=== PATIENT | female | born 1955 | race Caucasian/White ===

== ENCOUNTER 2018-09-15 07:04 | Emergency (ER) | payer OTHER ==
[~2018-09-15] VITALS: Ht 157.5 cm; Wt 70.5 kg
[~2018-09-15 07:04] MED LIST: CALC-159
[2018-09-15] MEDS ORDERED: AZEL6DRO OP (07:09)
[2018-09-15] MEDS ORDERED: proparacaine 0.5% ophthalmic drops 15ml EACHEYE ONE (07:10)
[2018-09-15 07:11] VITALS: BP 124/88
== END 2018-09-15 07:31 | disposition home or self-care (01) ==
LOC: ER 07:05
DX: H10.13 Acute atopic conjunctivitis, bilateral (principal); M19.90 Unspecified osteoarthritis, unspecified site; Z98.51 Tubal ligation status; Z98.890 Other specified postprocedural states; Z88.1 Allergy status to other antibiotic agents; Z79.899 Other long term (current) drug therapy; Z88.6 Allergy status to analgesic agent; Z91.018 Allergy to other foods
CPT/HCPCS: 99283

== ENCOUNTER 2019-07-08 09:06 | Emergency (ER) | payer OTHER ==
[~2019-07-08] VITALS: Ht 160 cm; Wt 69.1 kg
[~2019-07-08 09:06] MED LIST changes: +AZEL6DRO OP
[2019-07-08 09:08] VITALS: BP 125/83
== END 2019-07-08 09:30 | disposition home or self-care (01) ==
LOC: ER 09:06
DX: S40.011A Contusion of right shoulder, initial encounter (principal); M19.90 Unspecified osteoarthritis, unspecified site; Z98.890 Other specified postprocedural states; Z98.51 Tubal ligation status; Z72.89 Other problems related to lifestyle; Z88.5 Allergy status to narcotic agent; Z88.1 Allergy status to other antibiotic agents; Z88.8 Allergy status to other drugs, medicaments and biological substances; Z79.899 Other long term (current) drug therapy; Y04.8XXA Assault by other bodily force, initial encounter; Y93.89 Activity, other specified; Y92.89 Other specified places as the place of occurrence of the external cause; Y99.8 Other external cause status
CPT/HCPCS: 99283

== ENCOUNTER 2019-10-20 11:24 | Emergency (ER) | payer BC, OTHER ==
[~2019-10-20] VITALS: Ht 157.5 cm; Wt 64.5 kg
[2019-10-20 11:27] VITALS: BP 108/93
== END 2019-10-20 13:40 | disposition home or self-care (01) ==
LOC: EEVIPCON 11:25 → ER 11:25
DX: Z03.818 Encounter for observation for suspected exposure to other biological agents ruled out (principal); M19.90 Unspecified osteoarthritis, unspecified site; M81.0 Age-related osteoporosis without current pathological fracture; Z98.51 Tubal ligation status; Z98.890 Other specified postprocedural states; Z88.5 Allergy status to narcotic agent; Z88.2 Allergy status to sulfonamides; Z88.1 Allergy status to other antibiotic agents; Z88.8 Allergy status to other drugs, medicaments and biological substances; Z91.048 Other nonmedicinal substance allergy status; Z79.899 Other long term (current) drug therapy
CPT/HCPCS: 36415; 99283; U0003

== ENCOUNTER 2020-10-01 12:06 | Emergency (ER) | payer BC ==
[~2020-10-01] VITALS: Ht 157.5 cm; Wt 65.5 kg
[2020-10-01] MEDS ORDERED: iohexol 300mg/ml 100ml inj. ONE (12:18)
[2020-10-01 12:30] LABS: BASOPHILS # (AUTO) 0.1 X10'3 (0-0.2); BASOPHILS % (AUTO) 1.1 % (0-1); EOSINOPHILS # (AUTO) 0.1 X10'3 (0-0.9); EOSINOPHILS % (AUTO) 1.7 % (0-6); HEMATOCRIT 41.7 % (35.0-45.0); LYMPHOCYTES # (AUTO) 3.2 X10'3 (1.1-4.8); LYMPHOCYTES % (AUTO) 38.8 % (21-51); MEAN CORPUSCULAR HEMOGLOBIN 32.5 PG (27.0-31.0); MEAN CORPUSCULAR HGB CONC 33.7 g/dL (33.0-36.5); MEAN CORPUSCULAR VOLUME 96.5 FL (78-98); MEAN PLATELET VOLUME 8.1 FL (7.4-10.4); MONOCYTES # (AUTO) 0.7 X10'3 (0-0.9); MONOCYTES % (AUTO) 9.1 % (2-12); NEUTROPHILS % (AUTO) 49.3 % (42-75); PLATELET COUNT 360 X10'3 (140-440); RED BLOOD COUNT 4.32 X10'6 (4.20-5.60); RED CELL DISTRIBUTION WIDTH 14.1 % (11.5-14.5); WHITE BLOOD COUNT 8.2 X10'3 (4.5-11.0)
[2020-10-01 12:50] LABS: ALANINE AMINOTRANSFERASE 38 U/L (12-78); ALBUMIN 3.7 G/DL (3.4-5.0); ALKALINE PHOSPHATASE 70 IU/L (46-116); ANION GAP 6 (8-16); ASPARTATE AMINO TRANSFERASE 23 U/L (10-37); BILIRUBIN,TOTAL 0.5 MG/DL (0.1-1.0); BLOOD UREA NITROGEN 14 MG/DL (7-18); BUN/CREATININE RATIO 17.9 (6.6-38.0); CALCIUM 8.8 MG/DL (8.5-10.1); CHLORIDE 105 MMOL/L (99-107); CREATININE 0.78 MG/DL (0.40-0.90); GLUCOSE 87 MG/DL (70-104); POTASSIUM 3.8 MMOL/L (3.5-5.1); SODIUM 139 MMOL/L (135-145); TOTAL CARBON DIOXIDE 27.6 MMOL/L (24-32); TOTAL PROTEIN 7.4 G/DL (6.4-8.2); eGFR 75 ML/MIN
[2020-10-01] MEDS ORDERED: acetaminophen 325mg tablet PO ONE (12:55)
[2020-10-01 13:27] LABS: CLARITY,URINE SLIGHTLY CLOUDY (Clear); COLOR,URINE STRAW (Yellow); GLUCOSE, URINE NEGATIVE (Neg); KETONES,URINE NEGATIVE (Neg); LEUKOCYTE ESTERASE ,URINE SMALL (Neg); NITRITES, URINE NEGATIVE (Neg); OCCULT BLOOD,URINE SMALL (Neg); PH,URINE 5.5 (4.8-8.0); PROTEIN,URINE NEGATIVE (Neg); UROBILINOGEN,URINE 0.2 E.U/dL (0.2-1.0)
[2020-10-01 13:33] LABS: UA COLLECTION TYPE CLN CATCH MIDSTREAM
[2020-10-01 13:34] LABS: MUCUS STRANDS FEW /LPF (Neg); SQUAMOUS EPITHELIAL CELL,UR FEW /LPF (FEW)
[2020-10-01 13:35] LABS: BACTERIA,URINE FEW /HPF (Neg); RBC,URINE 0-2 /HPF (0-2)
[2020-10-01 14:57] VITALS: BP 117/66
== END 2020-10-01 15:00 | disposition home or self-care (01) ==
LOC: ER 12:07 → EEVIPCON 12:07 → ER 15:00
DX: K80.20 Calculus of gallbladder without cholecystitis without obstruction (principal); N28.1 Cyst of kidney, acquired; R10.31 Right lower quadrant pain; M19.90 Unspecified osteoarthritis, unspecified site; Z98.51 Tubal ligation status; Z98.890 Other specified postprocedural states; Z72.89 Other problems related to lifestyle; Z88.1 Allergy status to other antibiotic agents; Z88.2 Allergy status to sulfonamides; Z88.8 Allergy status to other drugs, medicaments and biological substances; Z79.899 Other long term (current) drug therapy
CPT/HCPCS: 36415; 74177; 76700; 80053; 81001; 85025; 87088; 99285; Q9967

== ENCOUNTER 2021-08-04 14:02 | Outpatient (CLI) | payer OTHER | END 2021-08-04 23:59 | disposition home or self-care (01) | LOC: LAB 14:02 | PROVIDERS: ATTEND Internal Medicine Infectious Disease | DX: Z20.822 Contact with and (suspected) exposure to COVID-19 (principal) | CPT/HCPCS: 87635; C9803 ==

== ENCOUNTER 2021-12-30 17:04 | Emergency (ER) | payer BC, OTHER ==
[~2021-12-30] VITALS: Ht 157.5 cm; Wt 65.9 kg
[2021-12-30 17:09] VITALS: BP 139/76
[2021-12-30 17:30] LABS: COLOR,URINE YELLOW (Yellow); GLUCOSE, URINE NEGATIVE (Neg); KETONES,URINE NEGATIVE (Neg); LEUKOCYTE ESTERASE ,URINE MODERATE (Neg); NITRITES, URINE POSITIVE (Neg); OCCULT BLOOD,URINE LARGE (Neg); PROTEIN,URINE 30 mg/dl (Neg); UROBILINOGEN,URINE 0.2 E.U/dL (0.2-1.0)
[2021-12-30 17:38] LABS: CLARITY,URINE CLOUDY (Clear)
[2021-12-30 17:39] LABS: UA COLLECTION TYPE CLN CATCH MIDSTREAM
[2021-12-30 17:41] LABS: BACTERIA,URINE 4+ /HPF (Neg); SQUAMOUS EPITHELIAL CELL,UR FEW /LPF (FEW); WBC,URINE TNTC /HPF (0-4)
[2021-12-30] MEDS ORDERED: cephalexin 250mg capsule PO ONE (18:00)
[2021-12-30] MEDS ORDERED: CEPH-585 PO (18:03)
== END 2021-12-30 18:48 | disposition home or self-care (01) ==
LOC: EEVIPCON 17:05 → ER 17:05
DX: N39.0 Urinary tract infection, site not specified (principal); Z88.1 Allergy status to other antibiotic agents; Z79.899 Other long term (current) drug therapy; Z88.5 Allergy status to narcotic agent; Z88.2 Allergy status to sulfonamides
CPT/HCPCS: 81001; 87077; 87088; 87186; 99283

== ENCOUNTER 2022-04-06 10:15 | Outpatient (CLI) | payer BC ==
[~2022-04-06 10:15] MED LIST changes: +CEPH-585 PO
[2022-04-06 11:22] LABS: BASOPHILS # (AUTO) 0.1 X10'3 (0-0.2); BASOPHILS % (AUTO) 1.3 % (0-1); EOSINOPHILS # (AUTO) 0.2 X10'3 (0-0.9); HEMATOCRIT 39.9 % (35.0-45.0); HEMOGLOBIN 13.7 g/dl (12.0-16.0); LYMPHOCYTES # (AUTO) 3.3 X10'3 (1.1-4.8); LYMPHOCYTES % (AUTO) 38.2 % (21-51); MEAN CORPUSCULAR HGB CONC 34.2 g/dL (33.0-36.5); MEAN CORPUSCULAR VOLUME 96.5 FL (78-98); MEAN PLATELET VOLUME 8.3 FL (7.4-10.4); MONOCYTES # (AUTO) 0.7 X10'3 (0-0.9); MONOCYTES % (AUTO) 8.2 % (2-12); NEUTROPHILS # (AUTO) 4.4 X10'3 (1.8-7.7); NEUTROPHILS % (AUTO) 50.3 % (42-75); PLATELET COUNT 319 X10'3 (140-440); RED BLOOD COUNT 4.14 X10'6 (4.20-5.60); RED CELL DISTRIBUTION WIDTH 14.1 % (11.5-14.5); WHITE BLOOD COUNT 8.7 X10'3 (4.5-11.0)
[2022-04-06 11:49] LABS: ALANINE AMINOTRANSFERASE 23 U/L (12-78); ALBUMIN 3.7 G/DL (3.4-5.0); ALKALINE PHOSPHATASE 54 IU/L (46-116); ANION GAP 9 (8-16); ASPARTATE AMINO TRANSFERASE 19 U/L (10-37); BILIRUBIN,TOTAL 0.6 MG/DL (0.1-1.0); BLOOD UREA NITROGEN 19 MG/DL (7-18); BUN/CREATININE RATIO 27.9 (6.6-38.0); CALCIUM 8.6 MG/DL (8.5-10.1); CHLORIDE 102 MMOL/L (99-107); CHOL/HDL RATIO 2.4 (0.00-4.99); CHOLESTEROL 208 MG/DL (0-200); CREATININE 0.68 MG/DL (0.40-0.90); GLUCOSE 88 MG/DL (70-104); HDL CHOLESTEROL 85 MG/DL (35-60); LDL CHOLESTEROL 115 MG/DL (50-100); POTASSIUM 3.4 MMOL/L (3.5-5.1); SODIUM 136 MMOL/L (135-145); TOTAL CARBON DIOXIDE 24.8 MMOL/L (24-32); TOTAL PROTEIN 7.3 G/DL (6.4-8.2); TRIGLYCERIDES 36 MG/DL (20-135); eGFR 87 ML/MIN
== END 2022-04-06 23:59 | disposition home or self-care (01) ==
LOC: LAB 10:15
PROVIDERS: ATTEND Family Medicine
DX: D64.9 Anemia, unspecified (principal); E78.00 Pure hypercholesterolemia, unspecified
CPT/HCPCS: 36415; 80053; 80061; 85025

== ENCOUNTER 2023-03-30 09:30 | Outpatient (CLI) | payer BC ==
[~2023-03-30 09:30] MED LIST changes: -CEPH-585 PO
[2023-03-30 11:56] LABS: BASOPHILS # (AUTO) 0.1 X10'3 (0-0.2); BASOPHILS % (AUTO) 0.9 % (0-1); EOSINOPHILS # (AUTO) 0.3 X10'3 (0-0.9); EOSINOPHILS % (AUTO) 2.7 % (0-6); HEMATOCRIT 42.2 % (35.0-45.0); HEMOGLOBIN 14.4 g/dl (12.0-16.0); LYMPHOCYTES % (AUTO) 30.4 % (21-51); MEAN CORPUSCULAR HEMOGLOBIN 33.1 PG (27.0-31.0); MEAN CORPUSCULAR HGB CONC 34.2 g/dL (33.0-36.5); MEAN CORPUSCULAR VOLUME 96.8 FL (78-98); MEAN PLATELET VOLUME 8.6 FL (7.4-10.4); MONOCYTES # (AUTO) 0.7 X10'3 (0-0.9); MONOCYTES % (AUTO) 7.6 % (2-12); NEUTROPHILS # (AUTO) 5.7 X10'3 (1.8-7.7); NEUTROPHILS % (AUTO) 58.4 % (42-75); PLATELET COUNT 412 X10'3 (140-440); RED BLOOD COUNT 4.36 X10'6 (4.20-5.60); RED CELL DISTRIBUTION WIDTH 14.4 % (11.5-14.5); WHITE BLOOD COUNT 9.8 X10'3 (4.5-11.0)
[2023-03-30 12:12] LABS: CHOL/HDL RATIO 2.6 (0.00-4.99); CHOLESTEROL 240 MG/DL (0-200); FREE T4 (FREE THYROXINE) 1.26 NG/DL (0.73-1.40); HDL CHOLESTEROL 92 MG/DL (35-60); LDL CHOLESTEROL 129 MG/DL (50-100); THYROID STIMULATING HORMONE 0.85 ulU/ml (0.34-4.50); TRIGLYCERIDES 50 MG/DL (20-135)
[2023-03-30 12:32] LABS: HEMOGLOBIN A1C 4.8 % (4.5-6.2)
== END 2023-03-30 23:59 | disposition home or self-care (01) ==
LOC: LAB 09:30
PROVIDERS: ATTEND Specialist
DX: Z01.419 Encounter for gynecological examination (general) (routine) without abnormal findings (principal); Z13.1 Encounter for screening for diabetes mellitus; Z13.220 Encounter for screening for lipoid disorders; E55.9 Vitamin D deficiency, unspecified
CPT/HCPCS: 36415; 80061; 82306; 83036; 84439; 84443; 85025

== ENCOUNTER 2023-11-17 07:47 | Emergency (ER) | payer BC ==
[~2023-11-17] VITALS: Ht 157.5 cm; Wt 65.8 kg
[2023-11-17] MEDS: proparacaine 0.5% ophthalmic drops 15ml EACHEYE ONE (08:40)
[2023-11-17] MEDS: fluorescein sod 1mg ophthalmic strip LEFTEYE ONE (08:40)
[2023-11-17] MEDS: ciprofloxacin 0.3% 2.5ml ophthalmic solution LEFTEYE ONE (09:06)
[2023-11-17] MEDS: gentamicin 0.3% ophthalmic drops 5ML LEFTEYE ONE (09:36)
[2023-11-17] MEDS: naphazoline/pheniramine eye 1 DROP BOTTLE LEFTEYE PRN (09:36)
[2023-11-17 10:20] VITALS: BP 121/72; PULSE 71; RESP 18; TEMP 98.2; O2SAT 99
== END 2023-11-17 10:23 | disposition home or self-care (01) ==
LOC: ER 07:47
DX: H10.9 Unspecified conjunctivitis (principal); T15.02XA Foreign body in cornea, left eye, initial encounter; M19.90 Unspecified osteoarthritis, unspecified site; Z98.890 Other specified postprocedural states; Z98.51 Tubal ligation status; Z72.89 Other problems related to lifestyle; Z88.1 Allergy status to other antibiotic agents; Z88.8 Allergy status to other drugs, medicaments and biological substances; Z79.899 Other long term (current) drug therapy
CPT/HCPCS: 65222; 99284

== ENCOUNTER 2024-04-25 16:29 | Outpatient (CLI) | payer BC ==
[2024-04-25 18:48] LABS: BASOPHILS # (AUTO) 0.1 X10'3 (0-0.2); BASOPHILS % (AUTO) 0.9 % (0-1); EOSINOPHILS # (AUTO) 0.3 X10'3 (0-0.9); EOSINOPHILS % (AUTO) 3.2 % (0-6); HEMATOCRIT 41.9 % (35.0-45.0); LYMPHOCYTES # (AUTO) 3.1 X10'3 (1.1-4.8); LYMPHOCYTES % (AUTO) 35.1 % (21-51); MEAN CORPUSCULAR HEMOGLOBIN 32.7 PG (27.0-31.0); MEAN CORPUSCULAR HGB CONC 33.5 g/dL (33.0-36.5); MEAN CORPUSCULAR VOLUME 97.6 FL (78-98); MEAN PLATELET VOLUME 9.1 FL (7.4-10.4); MONOCYTES # (AUTO) 0.7 X10'3 (0-0.9); MONOCYTES % (AUTO) 8.1 % (2-12); NEUTROPHILS # (AUTO) 4.7 X10'3 (1.8-7.7); NEUTROPHILS % (AUTO) 52.7 % (42-75); PLATELET COUNT 363 X10'3 (140-440); RED BLOOD COUNT 4.29 X10'6 (4.20-5.60); RED CELL DISTRIBUTION WIDTH 14.4 % (11.5-14.5)
[2024-04-25 19:09] LABS: CHOL/HDL RATIO 2.9 (0.00-4.99); CHOLESTEROL 221 MG/DL (0-200); HDL CHOLESTEROL 77 MG/DL (35-60); LDL CHOLESTEROL 122 MG/DL (50-100); THYROID STIMULATING HORMONE 0.88 ulU/ml (0.34-4.50); TRIGLYCERIDES 62 MG/DL (20-135)
== END 2024-04-25 23:59 | disposition home or self-care (01) ==
LOC: RAD 16:29
PROVIDERS: ATTEND Nurse Practitioner Women's Health
DX: Z01.419 Encounter for gynecological examination (general) (routine) without abnormal findings (principal); Z13.1 Encounter for screening for diabetes mellitus; Z13.220 Encounter for screening for lipoid disorders; E55.9 Vitamin D deficiency, unspecified
CPT/HCPCS: 36415; 80061; 82306; 83036; 84443; 85025

== ENCOUNTER 2024-05-07 15:37 | Outpatient (CLI) | payer BC ==
[2024-05-07 16:41] LABS: ALBUMIN 3.8 G/DL (3.4-5.0); ANION GAP 9 (8-16); BLOOD UREA NITROGEN 14 MG/DL (7-18); BUN/CREATININE RATIO 19.2 (10.0-20.0); CALCIUM 8.8 MG/DL (8.5-10.1); CHLORIDE 109 MMOL/L (99-107); CREATININE 0.73 MG/DL (0.40-0.90); GLUCOSE 85 MG/DL (70-104); SODIUM 144 MMOL/L (135-145); TOTAL CARBON DIOXIDE 25.8 MMOL/L (24-32); eGFR 80 ML/MIN
== END 2024-05-07 23:59 | disposition home or self-care (01) ==
LOC: LAB 15:37
PROVIDERS: ATTEND Urology Female Pelvic Medicine and Reconstructive Surgery
DX: Z01.812 Encounter for preprocedural laboratory examination (principal); R53.83 Other fatigue
CPT/HCPCS: 36415; 80048

== ENCOUNTER 2025-01-16 08:27 | Outpatient (CLI) | payer BC ==
[2025-01-16 09:11] LABS: CHOL/HDL RATIO 3.2 (0.00-4.99); CREATININE 0.72 MG/DL (0.40-0.90); LDL CHOLESTEROL 139 MG/DL (50-100); TOTAL CARBON DIOXIDE 29.9 MMOL/L (24-32); eGFR 81 ML/MIN
== END 2025-01-16 23:59 | disposition home or self-care (01) ==
LOC: RAD 08:27
PROVIDERS: ATTEND Family Medicine
DX: E11.9 Type 2 diabetes mellitus without complications (principal); E03.9 Hypothyroidism, unspecified; E78.00 Pure hypercholesterolemia, unspecified
CPT/HCPCS: 36415; 80053; 80061; 83036; 84443